=== PATIENT | male | born 1990 | race Caucasian/White ===

== ENCOUNTER 2018-09-03 10:00 | Emergency (ER) | payer OTHER ==
--- NOTE | 2018-09-03 10:32 | EDPHY ---
General Time Seen by Provider: 09/03/18 10:32 Narrative: CLINICAL IMPRESSION: Nausea, vomiting, abdominal pain ASSESSMENT/PLAN: Patient is a 28-year-old male with no significant medical history presents to the emergency department with complaints of nausea, vomiting and abdominal pain. Patient is afebrile, actively vomiting however not toxic-appearing. His abdomen was soft with diffuse, nonfocal tenderness to palpation, no peritoneal signs. His vital signs were reviewed, no findings to suggest sepsis. CBC revealed a leukocytosis of 15,000, BMP with no evidence of significant metabolic abnormality or acute kidney injury. Lipase and hepatic function panel grossly normal. Patient was treated symptomatically however continued to have abdominal pain, proceeded with CT which revealed a normal appearing appendix however there was some stranding around the appendix. General surgery was consulted, Dr. Welsh evaluated this patient in the emergency department and was felt to be left likely acute appendicitis. No findings to suggest other etiologies to include obstruction, perforation, mesenteric ischemia, acute pancreatitis, acute cholecystitis or diverticulitis. Query viral gastroenteritis verses hyperemesis cannabinoid as he does use marijuana regularly and reportedly heavily. The patient was given IV fluids and antiemetic with improvement of his symptoms, on repeat exam he is much more comfortable appearing and states that he feels much better. His abdomen was soft with very mild diffuse tenderness, no peritoneal signs or evidence of a surgical abdomen. The patient is well established with his primary care provider Dr. Yuliet sanders in [place], I discussed the importance of 1 day follow- up for a repeat abdominal exam. Patient verbalizes understanding and he is in agreement with this plan. Conservative return precautions discussed. DIFFERENTIAL DX: Abdominal pain including but not limited to appendicitis, cholecystitis, gastritis and urinary tract infection. Also considered hyperemesis cannabinoid. ED COURSE: 1015: Case discussed with Dr. Torres. 1158: On repeat examination the patient is sleeping, easily arousable. His abdomen is still diffusely tender, no peritoneal signs. He reports he is feeling mildly better. No further nausea or vomiting. 1304: Discussed case with radiologist, patient found to have stranding around his appendix however his appendix appears to be normal in size. 1311: Dr. Welsh is in the emergency department, case discussed with him. He will evaluate this patient. 1327: On repeat examination the patient reports he is feeling better. He is well established with his primary care provider in [place], he is confident that he can be seen tomorrow for repeat abdominal exam. I discussed it is very important that he have a re-evaluation. 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 Patient endorses multiple episodes in the past of similar symptoms, greater than 5 times, last time this past Monday. Patient reports regular and heavy marijuana use, has been told that his symptoms are possibly related to his marijuana use. Patient reports he smoked marijuana before he went to bed last night, woke up this morning feeling fine, ate breakfast. He drove to [employer] and upon arriving at the [employer] race he started to feel sudden onset of nausea and generalized abdominal pain. Patient subsequently had multiple episodes of emesis and was brought in by ambulance. Patient denies any recent fevers, chills or shortness of breath. He denies any urinary symptoms to include dysuria, hematuria or frequency. Bowel movements have been regular. He denies any testicular pain or swelling. PMH: Denies Family History: Not contributory Social History: Regular marijuana use, denies cigarette smoking or regular alcohol use REVIEW OF SYSTEMS: All other systems negative Constitutional: No fever, no chills, appetite change. Eyes: No discharge, vision change ENT: No sore throat, congestion, ear pain. Cardiovascular: No chest pain, no palpitations. Respiratory: No cough, no shortness of breath. Gastrointestinal: Abdominal pain, nausea and vomiting. Genitourinary: No hematuria, dysuria, flank pain. Musculoskeletal: No back pain, joint swelling, joint pain, myalgias. Skin: No rashes, color change. Neurological: No headache, dizziness, weakness. PHYSICAL EXAM: General Appearance: Uncomfortable appearing however not toxic-appearing. HENT: Normocephalic, atraumatic. Bilateral external ears are normal. Bilateral tympanic membranes are normal with pearly moya reflex. Nares are clear, mucosa is pink. Oropharynx is clear, mucous membranes are dry, uvula is midline. There is no tonsillar enlargement or exudate. The dentition is normal. Eyes: PERRLA, no acute vision change, nystagmus, swelling, discharge, pain or photosensitivity. Conjunctiva pink, no pallor or injection Neck: Supple, nontender, no lymphadenopathy, no midline pain, FROM, no meningismus. Respiratory: There are no retractions, lungs are clear to auscultation. Cardiac: Regular rate and rhythm, no murmurs or gallops. Gastrointestinal: Patient's abdomen is soft with diffuse, nonfocal tenderness to palpation. There is no rigidity, guarding or focal peritoneal finding. No masses or hernias appreciated. Bowel sounds are present. Neurological: Alert and oriented x 3, CN 2-12 grossly intact, normal sensation and strength Skin: Warm, dry, no rashes, no nodules on palpation. Musculoskeletal: Extremities are symmetrical, full range of motion, no tenderness, deformity, swelling, or erythema. Psychiatric: Mood and affect are normal, there is no agitation. MEDICAL DECISION MAKING: Patient was seen independently. Secondary supervising physician at time of evaluation was Dr. Torres, he did not evaluate this patient. Diagnosis: Nausea, vomiting and abdominal pain. Summary: See Assessment and Plan for summary of ED visit Clinical lab tests: ordered / reviewed. Independent visualization of images, tracing, or specimens: Yes. Decision to obtain medical records or history from someone other than the patient: No Review / Summarize previous medical records: Yes Discussed patient with another provider: Yes, Dr. Torres and Dr. Welsh Patient Progress: Stable, discharge. - History Smoking Status: Never smoked - Objective Vital Signs: Initial Vital Signs Temperature (C) 36.5 C 09/03/18 10:05 Heart Rate 53 L 09/03/18 10:05 Respiratory Rate 16 09/03/18 10:05 Blood Pressure 135/88 H 09/03/18 10:05 O2 Sat (%) 99 09/03/18 10:05 O2 Delivery Mode Room Air Allergies/Adverse Reactions: No Known Allergies Allergy (Unverified 09/03/18 10:04) Home Medications: Medication Instructions Recorded Ondansetron Odt [Zofran Odt] 4 mg PO Q8 PRN #5 tab 09/03/18 Laboratory Results: Laboratory Results 09/03/18 10:10 09/03/18 10:10 Medications Given: Discontinued Medications Diphenhydramine HCl (Benadryl Injection) 25 mg IVP EDNOW ONE Stop: 09/03/18 10:45 Last Admin: 09/03/18 10:54 Dose: 25 mg Famotidine (Pepcid) 20 mg IVP EDNOW ONE Stop: 09/03/18 12:18 Last Admin: 09/03/18 12:35 Dose: 20 mg Haloperidol Lactate (Haldol Injection) 2.5 mg IVP EDNOW ONE Stop: 09/03/18 10:45 Last Admin: 09/03/18 10:54 Dose: 2.5 mg Sodium Chloride (Ns) 1,000 mls @ 0 mls/hr IV EDNOW ONE; Wide Open PRN Reason: Protocol Stop: 09/03/18 10:44 Last Admin: 09/03/18 10:55 Dose: 1,000 mls Departure - Departure Disposition: Home, Routine, Self-Care Clinical Impression: Nausea & vomiting, Abdominal pain Condition: Good Instructions: Acute Abdominal Pain (ED) Additional Instructions: DISCHARGE INSTRUCTIONS FROM YOUR PROVIDER Thank you for visiting our emergency department today. It is imperative that you follow up with your primary care provider tomorrow for repeat abdominal exam. Rest, push non-diuretic, non-caffeinated fluids, clear liquid diet, then a BRAT diet (bananas, rice, applesauce, toast), then slowly advance diet to normal. Attempt small frequent meals. Zofran as prescribed as needed for any recurrent nausea and/or vomiting. Return for increased or unmanageable pain, new site or character of pain, flank pain, groin pain, pelvic pain, development of fever, chills, recurrent vomiting , vomiting blood or coffee grounds, diarrhea, constipation, bloody stools, black tarry stools, burning or pain with urination, bloody urine, inability to urinate, decreased urine output or other signs of dehydration, dizziness, weakness, fainting, difficulty breathing or swallowing, chest pain, or for any other new, worsening or worrisome symptoms. People present with illnesses and injuries in different ways, and it is always possible that we have missed something. Again, thank you for choosing our emergency department. We hope that you feel better. Referrals: Patient,NotPresent [Unknown] - 1 day without fail (Please follow-up with your primary care provider as we discussed tomorrow.) Prescriptions: Ondansetron Odt [Zofran Odt] 4 mg PO Q8 PRN #5 tab PRN Reason: Nausea/Vomiting, Can'T Take Po
[2018-09-03] MEDS ORDERED: NS 1,000 ML IV ONE (10:43)
[2018-09-03] MEDS ORDERED: HALOPERIDOL LACT 5 MG/ML INJ IVP ONE (10:44)
[2018-09-03 10:51] LABS: PLATELET COUNT 189 10^3/uL (150-400)
[2018-09-03] MEDS ORDERED: FAMOTIDINE 20 MG/2 ML SDV IVP ONE (12:17)
[2018-09-03] MEDS ORDERED: IOPAMIDOL (ISOVUE-300) 100 ML BTL ONE (12:35)
--- NOTE | 2018-09-03 14:09 | PDCONSULT ---
General [employer] Note: CC: abdominal pain diffuse, intractable nausea and vomiting HPI: 28 yo man with hx of hyperemesis cannaboid presents with hx consistent with this. However his pain localized transiently to the right lower quadrant. CT scan abd and pelvis was equivocal with normal caliber appendix but possible periappendiceal fat stranding. PMH: PSH: none ALL: none Meds None SH: daily THC/CBD FH: non contributory Temp Pulse Resp BP Pulse Ox 36.8 C 58 L 16 121/79 H 98 09/03/18 11:09 09/03/18 12:37 09/03/18 12:37 09/03/18 12:37 09/03/18 12:37 AA&O no distress subjective chills RRR CTA Abd soft NT.ND, no Rovsing's/rebound. No peritoneal signs. No HSM Extr no edema Skin normal turgor/tone 2+ symmetric peripheral pulses 09/03/18 10:10 09/03/18 10:10 Total Bilirubin 0.5 mg/dL (0.1-1.4) 09/03/18 10:10 Conjugated Bilirubin 0.1 mg/dL (0.0-0.5) 09/03/18 10:10 Unconjugated Bilirubin 0.4 mg/dL (0.0-1.1) 09/03/18 10:10 AST 27 IU/L (17-59) 09/03/18 10:10 ALT 32 IU/L (21-72) 09/03/18 10:[address] 09/03/18 12:23 Impression: 1. Indeterminate findings of the appendix. The appendix is normal in size, with air within it, however, there is adjacent stranding in the mesenteric fat. 2. Moderate constipation. 3. Small hiatal hernia. Results called and discussed with GREG Singh, on September 03, 2018 at 1306. I/P: Abdominal pain either prior dx of hyperemesis versis enteritis. Recommend home with hydration, abstain from THC/CBD. F/u with me or PCP in 1-2 weeks. Return for recurrence of symptoms.
[2018-09-03 14:37] VITALS: BP 140/60
--- NOTE | 2018-09-03 15:02 | CPEKG ---
Test Reason : OPEN Blood Pressure : / mmHG Vent. Rate : 041 BPM Atrial Rate : 040 BPM P-R Int : 152 ms QRS Dur : 097 ms QT Int : 447 ms P-R-T Axes : 040 056 037 degrees QTc Int : 370 ms Sinus bradycardia Confirmed by Yanna Torres ([id number]) on 09/03/2018 3:02:08 PM Referred By: YANNA TORRES Confirmed By:Yanna Torres
== END 2018-09-03 14:33 | disposition home or self-care (01) ==
DX: R11.2 Nausea with vomiting, unspecified (principal); R10.84 Generalized abdominal pain; R93.3 Abnormal findings on diagnostic imaging of other parts of digestive tract
CPT/HCPCS: 96374; J1200; J1630; Q9967